=== PATIENT | male | born 1940 | race Hispanic/Latino ===

== ENCOUNTER → 2017-07-02 | Outpatient (CLI) | payer OTHER ==
[~2017-07-02] MED LIST: DOXY100C2 PO; FOLI-74 PO; LORA0.5T2 PO; LOSA25TA21 PO; METO-408 PO; SERT100T12 PO
== END | disposition home or self-care (01) ==
LOC: OIH 13:59
PROVIDERS: ATTEND Internal Medicine Cardiovascular Disease
DX: Z13.6 Encounter for screening for cardiovascular disorders (principal)
CPT/HCPCS: 75571

== ENCOUNTER → 2018-06-09 | Outpatient (CLI) | payer MEDICARE ==
[~2018-06-09] MED LIST changes: +ALBUTEROL SULFATE 0.083% 2.5 MG/3 ML INH IH ONE; -LOSA25TA21 PO; +LOSA25TA41 PO
== END | disposition home or self-care (01) ==
LOC: RESP 08:42
PROVIDERS: ATTEND Internal Medicine Cardiovascular Disease
DX: R06.02 Shortness of breath (principal)
CPT/HCPCS: 94060; 94727; 94729

== ENCOUNTER → 2019-01-31 | Outpatient (CLI) | payer MEDICARE ==
[~2019-01-31] VITALS: Ht 172.7 cm; Wt 105.7 kg
[~2019-01-31] MED LIST changes: -ALBUTEROL SULFATE 0.083% 2.5 MG/3 ML INH IH ONE; +REGADENOSON 0.4 MG/5 ML PF SYG IVP SCH
== END | disposition home or self-care (01) ==
LOC: SHCH 07:38
PROVIDERS: ATTEND Internal Medicine Cardiovascular Disease
DX: I42.0 Dilated cardiomyopathy (principal); R07.9 Chest pain, unspecified
CPT/HCPCS: 78452; 93017; 96374; A9500 ×2; J2785

== ENCOUNTER → 2019-02-21 | Outpatient (CLI) | payer MEDICARE ==
[~2019-02-21] MED LIST changes: +CBD TINCTURE SL; +NAPR-1023 PO; +NITR0.3T11 SL; -REGADENOSON 0.4 MG/5 ML PF SYG IVP SCH
== END | disposition home or self-care (01) ==
LOC: SHCH 09:42
PROVIDERS: ATTEND Internal Medicine Cardiovascular Disease
DX: I42.0 Dilated cardiomyopathy (principal)
CPT/HCPCS: 93925

== ENCOUNTER → 2019-04-11 | Outpatient (CLI) | payer OTHER ==
[~2019-04-11] VITALS: Ht 171.4 cm; Wt 105.7 kg
[~2019-04-11] MED LIST changes: +SODIUM CHLORIDE 0.9% 500ML 500 ML IV SCH
[2019-04-11 14:05] VITALS: BP 143/80
[2019-04-11 14:43] LABS: BASOPHILS % (AUTO) 0.4 % (0.0-5.0); EOSINOPHILS % (AUTO) 3.7 % (0.0-8.0); HEMATOCRIT 38.8 % (42-54); LYMPHOCYTES % (AUTO) 13.7 % (21.0-51.0); MEAN CORPUSCULAR HGB CONC 30.4 g/dL (32.0-36.0); MEAN CORPUSCULAR VOLUME 92.2 fL (79-99); MONOCYTES % (AUTO) 5.3 % (3.0-13.0); NEUTROPHILS % (AUTO) 76.5 % (40.0-77.0); PLATELET COUNT (AUTO) 286 K/uL (130-400); RED BLOOD CELL COUNT(AUTO) 4.21 MIL/uL (4.50-6.20); RED CELL DISTRIBUTION WIDTH 13.2 % (11.0-15.5); WHITE BLOOD COUNT (AUTO) 8.5 K/uL (4.8-10.8)
[2019-04-11 14:51] LABS: APPEARANCE,URINE Clear (CLEAR); BILIRUBIN,URINE Negative (NEGATIVE); COLOR,URINE Yellow (YELLOW); GLUCOSE, URINE (UA) Negative (NEGATIVE); KETONES,URINE Negative (NEGATIVE); LEUKOCYTE ESTERASE ,URINE Negative (NEGATIVE); NITRATE,URINE Negative (NEGATIVE); OCCULT BLOOD,URINE Trace (NEGATIVE); PH,URINE 6.5 (5.0-8.0); PROTEIN,URINE Negative (NEGATIVE)
[2019-04-11 15:16] LABS: BACTERIA,URINE None Seen /HPF (None Seen); SQUAMOUS EPITHELIAL CELL,UR 0-2 /HPF (0-2); WBC,URINE 0-1 /HPF (0-1)
[2019-04-11 15:18] LABS: CREATININE 1.1 mg/dL (0.5-1.5); POTASSIUM 4.5 mmol/L (3.5-5.1)
[2019-04-11 15:20] LABS: INR 0.97 (0.85-1.15); PARTIAL THROMBOPLASTIN TIME 29.6 SEC (26.3-35.5); PROTHROMBIN TIME 10.2 SEC (9.6-11.6)
--- NOTE | 2019-04-11 15:25 | NUR ---
PER PT, HE IS NOT ALLERGIC TO TYLENOL, HE TAKES ACETAMINOPHEN AT HOME NEEDED. STATES HE IS ALLERGIC TO CODEINE ONLY AND TRAMADOL.
== END | disposition home or self-care (01) ==
LOC: DAH 10:00 → EDSTATUS 13:00
PROVIDERS: ATTEND Internal Medicine Cardiovascular Disease
DX: Z01.818 Encounter for other preprocedural examination (principal); I25.10 Atherosclerotic heart disease of native coronary artery without angina pectoris; F41.9 Anxiety disorder, unspecified; F32.9 Major depressive disorder, single episode, unspecified; I42.8 Other cardiomyopathies; Z88.5 Allergy status to narcotic agent; Z88.8 Allergy status to other drugs, medicaments and biological substances; Z79.899 Other long term (current) drug therapy; Z87.891 Personal history of nicotine dependence; Z85.46 Personal history of malignant neoplasm of prostate; Z82.49 Family history of ischemic heart disease and other diseases of the circulatory system
CPT/HCPCS: 36415; 71045; 80048; 81001; 85025; 85610; 85730; 93005

== ENCOUNTER 2020-02-10 05:52 | Day surgery (SDC) | payer MEDICARE, OTHER ==
[2020-02-08 10:46] LABS: BASOPHILS % (AUTO) 0.3 % (0.0-5.0); EOSINOPHILS % (AUTO) 2.7 % (0.0-8.0); HEMATOCRIT 38.7 % (42-54); LYMPHOCYTES % (AUTO) 12.2 % (21.0-51.0); MEAN CORPUSCULAR HEMOGLOBIN 28.4 pg (27.0-33.0); MEAN CORPUSCULAR HGB CONC 31.3 g/dL (32.0-36.0); MEAN CORPUSCULAR VOLUME 90.8 fL (79-99); MONOCYTES % (AUTO) 5.2 % (3.0-13.0); NEUTROPHILS % (AUTO) 79.1 % (40.0-77.0); PLATELET COUNT (AUTO) 254 K/uL (130-400); RED BLOOD CELL COUNT(AUTO) 4.26 MIL/uL (4.50-6.20); RED CELL DISTRIBUTION WIDTH 13.3 % (11.0-15.5); WHITE BLOOD COUNT (AUTO) 8.8 K/uL (4.8-10.8)
[2020-02-08 10:59] LABS: INR 0.96 (0.85-1.15); PARTIAL THROMBOPLASTIN TIME 29.7 SEC (26.3-35.5); PROTHROMBIN TIME 10.4 SEC (9.6-11.6)
[2020-02-08 11:03] LABS: CREATININE 1.1 mg/dL (0.5-1.5); POTASSIUM 4.7 mmol/L (3.5-5.1)
[2020-02-08 11:27] LABS: APPEARANCE,URINE Clear (CLEAR); BILIRUBIN,URINE Negative (NEGATIVE); COLOR,URINE Yellow (YELLOW); GLUCOSE, URINE (UA) Negative (NEGATIVE); KETONES,URINE Negative (NEGATIVE); LEUKOCYTE ESTERASE ,URINE Negative (NEGATIVE); NITRATE,URINE Negative (NEGATIVE); OCCULT BLOOD,URINE Trace (NEGATIVE); PH,URINE 5.5 (5.0-8.0); PROTEIN,URINE Negative (NEGATIVE)
[2020-02-08 11:59] LABS: RBC,URINE 0-1 /HPF (0-1)
[2020-02-08 12:00] LABS: BACTERIA,URINE Rare /HPF (None Seen); SQUAMOUS EPITHELIAL CELL,UR 0-2 /HPF (0-2); WBC,URINE 0-1 /HPF (0-1)
[2020-02-09 14:07] VITALS: BP 150/80
--- NOTE | 2020-02-09 14:18 | NUR ---
Abnormal labs Spoke to KASSIDY Blanchard and made aware of occult blood in UA and HGB 12.1, HCT 38.7; states of to proceed with procedure.
[~2020-02-10] VITALS: Ht 170.2 cm; Wt 101.9 kg
[2020-02-10] VITALS (10 sets, daily range): BP systolic 103–144; BP diastolic 58–79
[~2020-02-10 05:52] MED LIST changes: +ACET-2247 PO; +ASPI-1197 PO; -DOXY100C2 PO; -FOLI-74 PO; +LORA-192 PO; -LORA0.5T2 PO; -LOSA25TA41 PO; -METO-408 PO; +METO25TA6 PO; -NAPR-1023 PO; -NITR0.3T11 SL; +NITR0.4T50 SL; +ROSU10TA22 PO; -SERT100T12 PO; -SODIUM CHLORIDE 0.9% 500ML 500 ML IV SCH
[2020-02-10] MEDS ORDERED: SODIUM CHLORIDE 0.9% 1000ML 1,000 ML IV ONE (08:06)
[2020-02-10] MEDS ORDERED: HEPARIN SODIUM 1000UNIT/ML 10ML VIAL ONE (09:11)
[2020-02-10] MEDS ORDERED: SODIUM BICARB 50MEQ 50ML VIAL 50 ML ONE (09:11)
[2020-02-10] MEDS ORDERED: MEPERIDINE-PF 25 MG/ML SYG ONE (09:12)
[2020-02-10] MEDS ORDERED: NITROGLYCERIN 2 MG/VIAL VIAL IV ONE (09:12)
[2020-02-10] MEDS ORDERED: IOHEXOL-350 50ML VIAL IV ONE (09:12)
[2020-02-10] MEDS ORDERED: LIDOCAINE HCL 2% 20ML ONE (09:12)
[2020-02-10] MEDS ORDERED: MIDAZOLAM HCL 1 MG/ML 2ML VIAL ONE (09:12)
[2020-02-10] MEDS ORDERED: IOHEXOL 350 MG/ML 100ML INFUS..BTL IV ONE (09:12)
[2020-02-10] MEDS ORDERED: SODIUM CHLORIDE 0.9% 1000ML 1,000 ML IV SCH (09:45)
--- NOTE | 2020-02-10 10:00 | NUR ---
PT BACK FROM TISSUE COORDINATOR. NO HEMATOMA OR BLEEDING TO RT GROIN. PERCLOSE INTACT. NO CHEST PAIN OR SOB NOTED.
--- NOTE | 2020-02-10 12:45 | NUR ---
REPORT RECEIVED REPORT FROM ANGEL DENG RN. PT IN NO DISTRESS.
--- NOTE | 2020-02-10 13:00 | NUR ---
PT ENDORSED TO [facility]
--- NOTE | 2020-02-10 13:25 | NUR ---
D/C INSTRUCTIONS INSTRUCTIONS GIVEN TO PT AND SPOUSE
--- NOTE | 2020-02-10 14:00 | NUR ---
discharge pt and relative given d/c instructions. both voiced understanding. pt taken out via w/c in no distress. rt groin free from bleeding and hematoma
== END 2020-02-10 14:00 | disposition home or self-care (01) ==
LOC: DAH 05:52
PROVIDERS: ATTEND Internal Medicine Cardiovascular Disease
DX: I25.118 Atherosclerotic heart disease of native coronary artery with other forms of angina pectoris (principal); F41.9 Anxiety disorder, unspecified; M54.17 Radiculopathy, lumbosacral region; Z85.46 Personal history of malignant neoplasm of prostate; E86.0 Dehydration; Z88.6 Allergy status to analgesic agent; Z79.82 Long term (current) use of aspirin; Z79.01 Long term (current) use of anticoagulants; Z79.899 Other long term (current) drug therapy
CPT/HCPCS: 36415; 71045; 80048; 81001; 85025; 85610; 85730; 93005; 93458; 96360; 96361; A4215; A4216; A4221; A4222; A4223 ×3; A4606; A4663; C1760; C1894; J1644; J2175; J2250; J3490 ×3; J7030; Q9965; Q9967 ×2; 99156; 99157

== ENCOUNTER → 2020-06-13 | Outpatient (CLI) | payer MEDICARE | END | disposition home or self-care (01) | LOC: RAH 09:28 | PROVIDERS: ATTEND Internal Medicine | DX: R06.02 Shortness of breath (principal) | CPT/HCPCS: 71046 ==

== ENCOUNTER → 2021-04-09 | Outpatient (CLI) | payer MEDICARE ==
[~2021-04-09] MED LIST changes: +REGADENOSON 0.4 MG/5 ML PF SYG IVP SCH
== END | disposition home or self-care (01) ==
LOC: SHCH 07:51
PROVIDERS: ATTEND Internal Medicine Cardiovascular Disease
DX: I20.9 Angina pectoris, unspecified (principal); Z95.0 Presence of cardiac pacemaker
CPT/HCPCS: 78452; 93017; 96374; A9500 ×2; J2785

== ENCOUNTER 2021-11-26 05:37 | Day surgery (SDC) | payer MEDICARE ==
[2021-11-21 09:06] LABS: BASOPHILS % (AUTO) 0.5 % (0.0-5.0); EOSINOPHILS % (AUTO) 4.1 % (0.0-8.0); HEMATOCRIT 37.1 % (42-54); LYMPHOCYTES % (AUTO) 15.4 % (21.0-51.0); MEAN CORPUSCULAR HEMOGLOBIN 29.1 pg (27.0-33.0); MEAN CORPUSCULAR HGB CONC 32.6 g/dL (32.0-36.0); MEAN CORPUSCULAR VOLUME 89.2 fL (79-99); MONOCYTES % (AUTO) 6.3 % (3.0-13.0); NEUTROPHILS % (AUTO) 73.3 % (40.0-77.0); PLATELET COUNT (AUTO) 200 K/uL (130-400); RED BLOOD CELL COUNT(AUTO) 4.16 MIL/uL (4.50-6.20); RED CELL DISTRIBUTION WIDTH 13.7 % (11.0-15.5); WHITE BLOOD COUNT (AUTO) 7.5 K/uL (4.8-10.8)
[2021-11-21 09:17] LABS: POTASSIUM 4.1 mmol/L (3.5-5.1)
[2021-11-21 09:21] LABS: INR 0.95 (0.85-1.15); PROTHROMBIN TIME 10.4 SEC (9.6-11.6)
[2021-11-21 09:22] LABS: PARTIAL THROMBOPLASTIN TIME 30.8 SEC (26.3-35.5)
[~2021-11-26] VITALS: Ht 175.3 cm; Wt 100.2 kg
[2021-11-26] VITALS (10 sets, daily range): BP systolic 101–143; BP diastolic 49–85
[~2021-11-26 05:37] MED LIST changes: +0.9%NACL 1000ML 1,000 ML IV SCH; -ACET-2247 PO; -ASPI-1197 PO; -CBD TINCTURE SL; -LORA-192 PO; +LOSA25TA41 PO; +METO-408 PO; -METO25TA6 PO; -NITR0.4T50 SL; -REGADENOSON 0.4 MG/5 ML PF SYG IVP SCH; -ROSU10TA22 PO; +ROSU20TA31 PO
[2021-11-26] MEDS ORDERED: CEFAZOLIN SODIUM 1 GM VIAL IVP SCH (06:00)
[2021-11-26] MEDS ORDERED: LIDOCAINE HCL 1% 20 ML VIAL ONE (07:11)
[2021-11-26] MEDS ORDERED: BUPIVACAINE/PF 0.25% 30ML VIAL IJ ONE (07:11)
[2021-11-26] MEDS ORDERED: MIDAZOLAM HCL 1 MG/ML 2ML VIAL ONE ×3 (07:12→07:52)
[2021-11-26] MEDS ORDERED: MEPERIDINE-PF 25 MG/ML SYG ONE ×3 (07:12→07:52)
[2021-11-26] MEDS ORDERED: BACITRACIN 1 EACH PACKET TP ONE (08:23)
[2021-11-26] MEDS ORDERED: ONDANSETRON 4MG INJ IV PRN (09:00)
[2021-11-26] MEDS ORDERED: ACETAMINOPHEN WITH CODEINE 1 TAB TAB PO PRN ×2 (09:00)
[2021-11-26] MEDS ORDERED: CEFAZOLIN SODIUM 1 GM VIAL IVP ONE (13:00)
== END 2021-11-26 14:15 | disposition home or self-care (01) ==
LOC: DAH 05:37
PROVIDERS: ATTEND Internal Medicine Cardiovascular Disease
DX: Z45.02 Encounter for adjustment and management of automatic implantable cardiac defibrillator (principal); I42.8 Other cardiomyopathies; I44.2 Atrioventricular block, complete; F41.9 Anxiety disorder, unspecified; Z98.890 Other specified postprocedural states; Z82.49 Family history of ischemic heart disease and other diseases of the circulatory system; Z82.61 Family history of arthritis; Z80.9 Family history of malignant neoplasm, unspecified; Z88.8 Allergy status to other drugs, medicaments and biological substances; Z88.6 Allergy status to analgesic agent; Z79.899 Other long term (current) drug therapy; Z79.01 Long term (current) use of anticoagulants
CPT/HCPCS: 80048; 85025; 85610; 85730; 36415; 93005; 33264; 71045; C1882; J0690 ×2; J7030 ×2; J3490; J2250 ×3; J2175 ×3; A4215; A4222; A4221; A4663; A4216; A4606; A4223 ×3; 99156; 99157

== ENCOUNTER 2022-08-11 01:01 | Emergency (ER) | payer MEDICARE, OTHER ==
[~2022-08-11] VITALS: Ht 175.3 cm; Wt 99.8 kg
[~2022-08-11 01:01] MED LIST changes: -0.9%NACL 1000ML 1,000 ML IV SCH
[2022-08-11 01:03] VITALS: BP 159/67
== END 2022-08-11 04:54 | disposition left against medical advice (07) ==
LOC: EDH 01:01
DX: R10.9 Unspecified abdominal pain (principal); R11.0 Nausea; Z53.21 Procedure and treatment not carried out due to patient leaving prior to being seen by health care provider
CPT/HCPCS: 99281

== ENCOUNTER → 2022-12-03 | Outpatient (CLI) | payer OTHER ==
[~2022-12-03] MED LIST changes: -ROSU20TA31 PO; +ROSU20TA73 PO
== END | disposition home or self-care (01) ==
LOC: SHCH 07:45
PROVIDERS: ATTEND Internal Medicine Cardiovascular Disease
DX: I25.10 Atherosclerotic heart disease of native coronary artery without angina pectoris (principal); I73.9 Peripheral vascular disease, unspecified
CPT/HCPCS: 93978

== ENCOUNTER → 2023-10-26 | Outpatient (CLI) | payer OTHER ==
[2023-10-26] MEDS: REGADENOSON 0.4 MG/5 ML PF SYG IVP ONE (11:10)
== END | disposition home or self-care (01) ==
LOC: SHCH 07:51
PROVIDERS: ATTEND Internal Medicine Cardiovascular Disease
DX: I25.10 Atherosclerotic heart disease of native coronary artery without angina pectoris (principal); R06.00 Dyspnea, unspecified; Z95.0 Presence of cardiac pacemaker
CPT/HCPCS: 78452; 96374; 93017; J2785; A9500 ×2

== ENCOUNTER 2023-12-09 06:23 | Observation (INO) | payer OTHER ==
[2023-12-07 12:07] LABS: BASOPHILS # (AUTO) 0.03 K/uL (0.00-0.20); BASOPHILS % (AUTO) 0.4 % (0.0-5.0); EOSINOPHILS # (AUTO) 0.25 K/uL (0.00-0.70); EOSINOPHILS % (AUTO) 3.1 % (0.0-8.0); IMMATURE GRANULOCYTE ABSOLUTE 0.03 K/uL (0-1); LYMPHOCYTES # (AUTO) 1.2 K/uL (1.0-4.8); LYMPHOCYTES % (AUTO) 14.5 % (21.0-51.0); MEAN CORPUSCULAR HEMOGLOBIN 29.4 pg (27.0-33.0); MEAN CORPUSCULAR HGB CONC 31.6 g/dL (32.0-36.0); MEAN CORPUSCULAR VOLUME 93.1 fL (79-99); MONOCYTES # (AUTO) 0.5 K/uL (0.1-1.0); NEUTROPHILS # (AUTO) 6.1 K/uL (1.8-7.7); NEUTROPHILS % (AUTO) 75.6 % (40.0-77.0); PLATELET COUNT (AUTO) 220 K/uL (130-400); RED BLOOD CELL COUNT(AUTO) 4.08 MIL/uL (4.50-6.20); RED CELL DISTRIBUTION WIDTH 13.2 % (11.0-15.5)
[2023-12-07 12:12] LABS: APPEARANCE,URINE CLEAR (CLEAR); BILIRUBIN,URINE NEGATIVE (NEGATIVE); COLOR,URINE COLORLESS (YELLOW); GLUCOSE, URINE (UA) NEGATIVE (NEGATIVE); KETONES,URINE NEGATIVE (NEGATIVE); LEUKOCYTE ESTERASE ,URINE NEGATIVE Leu/uL (NEGATIVE); NITRATE,URINE NEGATIVE (NEGATIVE); OCCULT BLOOD,URINE SMALL (NEGATIVE); PROTEIN,URINE NEGATIVE (NEGATIVE); UROBILINOGEN,URINE 0.2 mg/dL (0.2-1.0)
[2023-12-07 12:18] LABS: ADD UA MICROSCOPIC YES
[2023-12-07 12:19] LABS: MUCUS,URINE RARE LPF (None Seen); WBC,URINE 0-1 /HPF (0-1)
[2023-12-07 12:20] LABS: INR 1.03 (0.85-1.15); PROTHROMBIN TIME 11.1 SEC (9.6-11.6)
[2023-12-07 12:21] LABS: ALBUMIN 3.7 g/dL (3.5-5.0); CREATININE 1.1 mg/dL (0.5-1.3); PARTIAL THROMBOPLASTIN TIME 31.3 SEC (26.3-35.5); POTASSIUM 4.3 mmol/L (3.5-5.1)
[2023-12-07 12:22] VITALS: BP 134/64; PULSE 83; RESP 16; TEMP 97.5
[~2023-12-09] VITALS: Ht 167.6 cm; Wt 95.3 kg
[2023-12-09] VITALS (33 sets, daily range): BP systolic 103–135; BP diastolic 56–73; PULSE 60–87; RESP 14–20; TEMP 97.5–98
[~2023-12-09 06:23] MED LIST changes: +LORA2TAB80 PO; +NITR0.4T50 SL; +b complex PO; +magnesium PO; +tylenol arthritis PO; +vit d3 PO
[2023-12-09] MEDS ORDERED: LIDOCAINE PF 100MG/5ML (2%) SYRINGE 5ML ONE (07:14)
[2023-12-09] MEDS ORDERED: SUCCINYLCHOLINE CHLORIDE 20 MG/ML 10 ML VIAL ONE (07:14)
[2023-12-09] MEDS ORDERED: GLYCOPYRROLATE 0.2 MG/ML 5 ML VIAL ONE (07:15)
[2023-12-09] MEDS ORDERED: proPOFol 10 MG/ML 20ML VIAL IV ONE (07:15)
[2023-12-09] MEDS ORDERED: NEOSTIGMINE METHYLSULFATE 1MG/ML IV ONE (07:15)
[2023-12-09] MEDS ORDERED: dexaMETHasone SOD PHOSPHATE 10MG/ML 1ML VIAL ONE (07:15)
[2023-12-09] MEDS ORDERED: MIDAZOLAM HCL 1 MG/ML 2ML VIAL ONE (07:15)
[2023-12-09] MEDS ORDERED: FENTanyl CITRate PF 50 MCG/1 ML 2ML VIAL ONE ×2 (07:16→11:30)
[2023-12-09] MEDS ORDERED: ondanSETRON 4MG INJ ONE (07:16)
[2023-12-09] MEDS ORDERED: rocuRONium bROMide 10MG/1ML 5ML VL ONE (07:16)
[2023-12-09] MEDS: ceFAZolin SODIUM 2 GM VIAL ONE (07:27)
[2023-12-09] MEDS: LACTATED RINGERS 1000ML 1,000 ML IV ONE (07:27)
[2023-12-09] MEDS ORDERED: ROPivacaine 0.5% 5MG/ML 30ML ONE ×2 (08:20→08:35)
[2023-12-09] MEDS ORDERED: ketaMINE 50MG/ML SYRINGE 50 MG/ML DISP.SYRIN ONE (08:20)
[2023-12-09] MEDS ORDERED: TRANEXAMIC ACID 1000MG/10ML ONE (08:35)
[2023-12-09] MEDS ORDERED: ketOROlac 30MG VIAL (30MG/ML) ONE (08:35)
[2023-12-09] MEDS: ROPivacaine 0.5% 5MG/ML 30ML IJ ONE (08:43)
[2023-12-09] MEDS ORDERED: ALBUMIN (HUMAN) 5% 250 ML IV ONE (08:43)
[2023-12-09] MEDS ORDERED: ondanSETRON 4MG INJ IVP PRN (10:00)
[2023-12-09] MEDS ORDERED: PoTASSium chl 10% ELIXIR 20MEQ 20 MEQ/15 ML UDCUP PO PRN (10:00)
[2023-12-09] MEDS ORDERED: CALCIUM CARB 500MG PO PRN (10:00)
[2023-12-09] MEDS ORDERED: CYCLOBENZAPRINE HCL 10 MG TABLET PO PRN (10:00)
[2023-12-09] MEDS ORDERED: FERROUS FUMARATE 324 MG TABLET PO PRN (10:00)
[2023-12-09] MEDS: 0.9%NACL 1000ML 1,000 ML IV SCH (10:00)
[2023-12-09] MEDS ORDERED: traMADol HCL 50 MG TABLET PO PRN (10:00)
[2023-12-09] MEDS ORDERED: NITROGLYCERIN 0.4 MG SL TAB SL PRN (10:00)
[2023-12-09] MEDS ORDERED: PoTASSium chloRIDE 20MEQ ER 20 MEQ ERTAB PO PRN (10:00)
[2023-12-09] MEDS ORDERED: PoTASSium chloRIDE 20MEQ/100ML 100 ML IV PRN (10:00)
[2023-12-09] MEDS ORDERED: phenylEPHRINE HCL 10 MG/ML 1ML VIAL IV ONE (11:28)
[2023-12-09] MEDS: SUGAMMADEX SODIUM 200 MG/2 ML VIAL IV ONE (11:38)
[2023-12-09] MEDS: ketOROlac 15MG/ML VIAL (15MG/ML) IV SCH (12:20)
[2023-12-09] MEDS: ketOROlac 15MG/ML VIAL (15MG/ML) ONE (12:20)
[2023-12-09] MEDS ORDERED: GABApentin 100 MG CAPSULE PO SCH (14:00)
[2023-12-09] MEDS ORDERED: ceFAZolin SODIUM 2 GM VIAL IVPB SCH (15:00)
[2023-12-09] MEDS: PHARMACY COMMUNICATION MISC SCH (15:30)
[2023-12-09] MEDS: ceFAZolin SODIUM 2 GM VIAL IVPB SCH (17:32)
[2023-12-09] MEDS: doCUSate SODIUM 100 MG CAP PO SCH (20:52)
[2023-12-09] MEDS: atorVAStatin 40 MG TABLET PO SCH (20:52)
[2023-12-09] MEDS: LoSARTan 25 MG TABLET PO SCH (20:52)
[2023-12-09] MEDS: MAGNESIUM PO SCH (20:57)
[2023-12-10] VITALS (7 sets, daily range): BP systolic 89–122; BP diastolic 38–56; PULSE 59–77; RESP 17–19; TEMP 97.8–99.6; O2SAT 98
[2023-12-10 04:58] LABS: HEMATOCRIT 29.5 % (42-54); MEAN CORPUSCULAR HEMOGLOBIN 29.3 pg (27.0-33.0); MEAN CORPUSCULAR HGB CONC 31.9 g/dL (32.0-36.0); MEAN CORPUSCULAR VOLUME 91.9 fL (79-99); RED BLOOD CELL COUNT(AUTO) 3.21 MIL/uL (4.50-6.20); RED CELL DISTRIBUTION WIDTH 13.2 % (11.0-15.5); WHITE BLOOD COUNT (AUTO) 10.3 K/uL (4.8-10.8)
[2023-12-10 05:26] LABS: CREATININE 1.3 mg/dL (0.5-1.3); POTASSIUM 4.2 mmol/L (3.5-5.1)
[2023-12-10] MEDS: metOPROLol sucCINATE 25 MG TAB.SR.24H PO SCH (08:34)
[2023-12-10] MEDS: ASPIRIN 325MG EC TAB PO SCH (08:40)
[2023-12-10] MEDS: polyETHYLene GLYCol 3350 17 GM POWD.PACK PO SCH (08:40)
[2023-12-10] MEDS: VITAMIN B COMPLEX 1 CAPSULE PO SCH (08:40)
[2023-12-10] MEDS: HYDROcodone/APAP 5/325 1 TAB TABLET PO PRN (08:41)
[2023-12-10] MEDS: VITAMIN D3 PO SCH (08:41)
[2023-12-10] MEDS: ketOROlac 15MG/ML VIAL (15MG/ML) IV PRN (12:17)
[2023-12-11] VITALS: BP 126/59; PULSE 77; RESP 18; TEMP 98.5
[2023-12-11 04:00] VITALS: BP 111/54; PULSE 79; RESP 20; TEMP 98.1
[2023-12-11 08:03] VITALS: BP 120/60; PULSE 74; RESP 19; TEMP 97.9
[2023-12-11 08:20] VITALS: O2SAT 99
[2023-12-11] MEDS ORDERED: ASPI-891 PO (10:24)
[2023-12-11] MEDS ORDERED: CYCL-309 PO (10:24)
[2023-12-11] MEDS ORDERED: HYDR-4060 PO (10:24)
[2023-12-11] MEDS ORDERED: DOCU-116 PO (10:24)
[2023-12-11 12:00] VITALS: BP 117/50; PULSE 78; RESP 18; TEMP 98.1
[2023-12-11 16:00] VITALS: BP 118/56; PULSE 70; RESP 16; TEMP 97.6
[2023-12-12] MEDS ORDERED: BisaCODYL 10 MG SUPP.RECT RC PRN (10:00)
== END 2023-12-11 17:25 ==
LOC: DAH 06:23 → DAHIP 06:24 → DAH 06:24 → 4DH 16:15
PROVIDERS: ADMIT Student in an Organized Health Care Education/Training Program; ATTEND Student in an Organized Health Care Education/Training Program
DX: M17.11 Unilateral primary osteoarthritis, right knee (principal); D62 Acute posthemorrhagic anemia; I10 Essential (primary) hypertension; K21.9 Gastro-esophageal reflux disease without esophagitis; E78.5 Hyperlipidemia, unspecified; Z79.899 Other long term (current) drug therapy; Z98.890 Other specified postprocedural states
CPT/HCPCS: 82040; 80048 ×2; 85025; 85610; 85730; 87086; 84134; 86140; 81001; 36415 ×2; 87641; 64447; 27447; 96376 ×2; 96365; 96375; 73560; 97161; 97116 ×5; 97530 ×7; 96366; 85027; G0378 ×49; A4223 ×2; A4663; A4215 ×2; P9045; J7120; J3010 ×2; J3490 ×4; J1100; J0330; J2001; J2250; J2704; J2405; J1885 ×6; J2710; J2795 ×3; J2371; J0690 ×3; C1713 ×2; C1776 ×2; A4649 ×2; A6255; A5120; A4222; A4221; A4216

== ENCOUNTER 2024-04-06 05:56 | Day surgery (SDC) | payer OTHER ==
[~2024-04-06] VITALS: Ht 175.3 cm; Wt 83.9 kg
[2024-04-06] VITALS (10 sets, daily range): BP systolic 88–122; BP diastolic 50–72; PULSE 66–82; RESP 14–18; TEMP 97.5–208.2
[~2024-04-06 05:56] MED LIST changes: +ASPI-891 PO; +CYCL-309 PO; +DOCU-116 PO; +HYDR-4060 PO; -LORA2TAB80 PO; -ROSU20TA73 PO; +ROSU20TA98 PO; -tylenol arthritis PO
[2024-04-06] MEDS ORDERED: METO-408 PO (06:47)
[2024-04-06] MEDS ORDERED: BICA50TA7 PO (06:49)
[2024-04-06] MEDS: 0.9%NACL 1000ML 1,000 ML IV ONE (07:06)
[2024-04-06] MEDS ORDERED: proPOFol 10 MG/ML 20ML VIAL IV ONE (07:10)
== END 2024-04-06 09:10 ==
LOC: DAH 05:56 → ENDO 05:56
PROVIDERS: ATTEND Internal Medicine
DX: D50.9 Iron deficiency anemia, unspecified (principal); D12.0 Benign neoplasm of cecum; R10.13 Epigastric pain; K57.30 Diverticulosis of large intestine without perforation or abscess without bleeding; K31.89 Other diseases of stomach and duodenum; K59.04 Chronic idiopathic constipation; K44.9 Diaphragmatic hernia without obstruction or gangrene; K64.1 Second degree hemorrhoids; K29.70 Gastritis, unspecified, without bleeding; Z95.0 Presence of cardiac pacemaker; C61 Malignant neoplasm of prostate; Z98.890 Other specified postprocedural states; Z88.6 Allergy status to analgesic agent; Z79.899 Other long term (current) drug therapy
CPT/HCPCS: 43239; 45380; J7030 ×2; J2704; A4620; A4215; A4223; A7002; A4222; A4221; A4663; A4606; J3490

== ENCOUNTER → 2024-09-07 | Outpatient (CLI) | payer OTHER ==
[~2024-09-07] MED LIST changes: -ASPI-891 PO; +BICA50TA7 PO; -CYCL-309 PO; -DOCU-116 PO; -HYDR-4060 PO; +IOHEXOL 350 MG/ML 100ML INFUS..BTL IV ONE; -b complex PO; -magnesium PO; -vit d3 PO
--- NOTE | 2024-09-07 10:17 | HMCIMG ---
Exam Type: CT angiogram abdomen and pelvis with contrast Clinical Information: Celiac stenosis Technique: Routine helical scanning at 5mm collimation through the abdomen and pelvis after contrast administration. In addition, sagittal and coronary formations of the abdomen pelvis and surface rendering three-dimensional reconstructions of the abdominal aorta were performed. 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 The liver, spleen, pancreas, adrenal glands and kidneys are normal in appearance except for bilateral renal simple cysts. The gallbladder shows cholelithiasis. No pathologic lymphadenopathy is evident. The stomach, bowel loops, and colon are otherwise unremarkable except for diverticulosis of the sigmoid without acute inflammation. Specifically, no large or small bowel dilatation or air/ fluid levels are noted to suggest obstruction or adynamic ileus. The pelvic viscera are normal in CT appearance. The perirectal fat planes are clear. The visualized osseous elements are normal for the patient's age. Examination of the aorta shows no dissection or rupture. There is no aneurysmal dilatation. 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 The celiac trunk origin is fairly free of thrombus. No occlusion seen either vessel. 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 The celiac trunk origin is fairly free of thrombus. No occlusion seen either vessel. Diverticulosis. This study was performed using dose reduction techniques to include automated exposure control and/or adjustment of the mA and/or kV according to patient size.
== END | disposition home or self-care (01) ==
LOC: RAH 08:21
PROVIDERS: ATTEND Internal Medicine Cardiovascular Disease
DX: N28.1 Cyst of kidney, acquired (principal); K57.30 Diverticulosis of large intestine without perforation or abscess without bleeding; K80.20 Calculus of gallbladder without cholecystitis without obstruction; K55.1 Chronic vascular disorders of intestine; I44.2 Atrioventricular block, complete; J84.10 Pulmonary fibrosis, unspecified
CPT/HCPCS: 74174; Q9967